=== PATIENT | male | born 1935 | race Caucasian/White ===

== ENCOUNTER 2020-09-17 06:20 | Emergency (ER) | payer MEDICARE ==
[2020-09-17 06:46] LABS: HEMOGLOBIN 12.7 gm/dl (14.0-17.5); WHITE BLOOD COUNT 9.1 K/UL (4.5-11.0)
[2020-09-17 07:09] LABS: BUN/CREATININE RATIO 22 (0-10)
== END 2020-09-17 08:15 | disposition other institution (70) ==
LOC: ER1 06:20
PROVIDERS: Emergency Medicine
DX: S06.309A Unspecified focal traumatic brain injury with loss of consciousness of unspecified duration, initial encounter (principal); I10 Essential (primary) hypertension; Z79.01 Long term (current) use of anticoagulants; W22.8XXA Striking against or struck by other objects, initial encounter
CPT/HCPCS: 36430; 70450; 71045; 80053; 82550; 82553; 82962; 83690; 83735; 83874; 83880; 84484; 85025; 85610; 85730; 86900; 86901; 87635; 93005; 96374; 96375; 99285; J0360; P9035